=== PATIENT | female | born 1960 | race Caucasian/White ===

== ENCOUNTER 2020-06-15 15:10 | Emergency (ER) | payer OTHER ==
[2020-06-15 15:25] VITALS: BMI 30.2
[2020-06-15] MEDS ORDERED: ACETAMINOPHEN 500 MG TABLET (FP) PO ONE (16:23)
[2020-06-15] MEDS ORDERED: ACETAMINOPHEN 500 MG TABLET (FP) ONE (16:32)
[2020-06-15 18:50] VITALS: BP 137/86; PULSE 82; TEMP 100
== END 2020-06-15 18:53 | disposition home or self-care (01) ==
LOC: JER 15:10
DX: U07.1 COVID-19 (principal)
CPT/HCPCS: 71046-TC-FY; 99283-25

== ENCOUNTER 2020-06-16 16:22 | Inpatient (IN) | payer OTHER ==
[2020-06-16] MEDS ORDERED: DEXAMETHASONE SOD PHOSPHATE 4 MG/1 ML VIAL IVPUSH ONE (17:01)
[2020-06-16] MEDS ORDERED: CEFTRIAXONE 1,000 MG in DEXTROSE 5%-WATER - 50 ML IVPB ONE (17:01)
[2020-06-16] MEDS ORDERED: DEXAMETHASONE SOD PHOSPHATE 10 MG/1 ML VIAL ONE (17:17)
[2020-06-16] MEDS ORDERED: CEFTRIAXONE 1 GM/50 ML BAG ONE (17:18)
[2020-06-16] MEDS ORDERED: SODIUM CHLORIDE 0.9% 500 ML INFUS.BAG IV ONE (17:58)
[2020-06-16] MEDS ORDERED: ACETAMINOPHEN 1000 MG/100 ML VIAL (NON FORMULARY) IVPB ONE (17:58)
[2020-06-16] MEDS ORDERED: AZITHROMYCIN IVPB 500 MG in DEXTROSE 5%-WATER - 250 ML IVPB ONE (17:58)
[2020-06-16 18:02] LABS: VENOUS BASE EXCESS -0.7 mmol/L (-2-2); VENOUS O2 SATURATION 83.6 % (70-80); VENOUS PH 7.376 (7.310-7.410)
[2020-06-16 18:04] LABS: BASO % 0.1 % (0-2.0); HEMATOCRIT 39.3 % (32.4-45.2); HEMOGLOBIN 13.4 GM/dL (10.7-15.3); LYMPH % 16.1 % (8-40); MCH 32.1 pg (25.7-33.7); MEAN CELL VOLUME 94.4 fl (80-96); MEAN PLT VOLUME 9.1 fl (7.5-11.1); MONO % 6.4 % (3.8-10.2); NEUT % 77.4 % (42.8-82.8); PLATELET COUNT 192 K/MM3 (134-434); RBC 4.16 M/mm3 (3.60-5.2); WHITE BLOOD COUNT 6.1 K/mm3 (4.0-10.0)
[2020-06-16 18:10] LABS: INR 1.03 (0.83-1.09); PROTHROMBIN TIME (PATIENT) 12.7 SEC (9.7-13.0)
[2020-06-16] MEDS ORDERED: AZITHROMYCIN IVPB 500 MG/250 ML BAG IVPB ONE (18:21)
[2020-06-16 18:26] LABS: CHLORIDE 104 mmol/L (98-107); POTASSIUM 3.2 mmol/L (3.5-5.1); SODIUM 141 mmol/L (136-145)
[2020-06-16 18:28] LABS: GLUCOSE,RANDOM 183 mg/dL (74-106)
[2020-06-16 18:30] LABS: ALBUMIN 3.2 g/dl (3.4-5.0); ANION GAP 8 MMOL/L (8-16); CO2 28 mmol/L (21-32)
[2020-06-16 18:32] LABS: BILIRUBIN,DIRECT 0.2 mg/dL (0.0-0.2); CREATININE 0.9 mg/dL (0.55-1.3); SGOT/AST 65 U/L (15-37); SGPT/ALT 44 U/L (13-61)
[2020-06-16 18:33] LABS: BILIRUBIN,TOTAL 0.4 mg/dL (0.2-1); LDH 344 U/L (84-246); TOT PROT 7.3 g/dl (6.4-8.2)
[2020-06-16 18:34] LABS: ALK PHOS 71 U/L (45-117)
[2020-06-16] MEDS ORDERED: ENOXAPARIN NA (PORCINE) 40 MG/0.4 ML DISP.SYRIN SQ ONE ×2 (18:42→18:58)
[2020-06-16] MEDS ORDERED: POTASSIUM CHLORIDE TABS 20 MEQ TABLET.ER (FP) PO ONE ×2 (18:49→18:58)
[2020-06-16 19:35] LABS: EPI CELLS >36 /uL (0-25.1); HYALINE CASTS 4 /uL (0-3.1); PH,URINE 5.5 (5.0-8.0); URINE APPEARANCE CLEAR; URINE BACTERIA 55 /uL (0-1359); URINE BILIRUBIN NEGATIVE (NEGATIVE); URINE COLOR DK YELLOW; URINE GLUCOSE (UA) 1+ (NEGATIVE); URINE KETONE TRACE (NEGATIVE); URINE LEUK ESTERASE NEGATIVE (NEGATIVE); URINE NITRITE NEGATIVE (NEGATIVE); URINE PROTEIN 2+ (NEGATIVE); URINE RBC 12 /uL (0-23.9)
[2020-06-16 21:16] LABS: URINE WBC 75.4 /uL (0-25.8)
[2020-06-16] MEDS ORDERED: MAGNESIUM SULF 50% (8.12 MEQ/2 ML-1 GM VIAL) IVPB ONE (23:48)
[2020-06-16] MEDS: ENOXAPARIN NA (PORCINE) 60 MG/0.6 ML DISP.SYRIN SQ SCH (23:58)
[2020-06-17] MEDS ORDERED: PREGABALIN 25 MG CAPSULE ONE (00:16)
[2020-06-17] MEDS: PREGABALIN 25 MG CAPSULE PO SCH ×3 (00:22→21:26)
[2020-06-17] MEDS: INSULIN SLIDING SCALE (NOVOLOG) 1 VIAL SQ SCH ×4 (07:53→21:31)
[2020-06-17 08:13] LABS: RBC 3.94 M/mm3 (3.60-5.2); WHITE BLOOD COUNT 3.7 K/mm3 (4.0-10.0)
[2020-06-17 08:14] LABS: HEMATOCRIT 37.5 % (32.4-45.2); HEMOGLOBIN 12.2 GM/dL (10.7-15.3); MCHC 32.6 g/dl (32.0-36.0); MEAN PLT VOLUME 9.1 fl (7.5-11.1); PLATELET COUNT 182 K/MM3 (134-434); RDW 12.8 % (11.6-15.6)
[2020-06-17 08:32] LABS: CHLORIDE 111 mmol/L (98-107); POTASSIUM 4.4 mmol/L (3.5-5.1); SODIUM 142 mmol/L (136-145)
[2020-06-17 08:36] LABS: ALBUMIN 2.8 g/dl (3.4-5.0); ANION GAP 6 MMOL/L (8-16); BLOOD UREA NITROGEN 13.6 mg/dL (7-18); CALCIUM 7.9 mg/dL (8.5-10.1); CO2 25 mmol/L (21-32); GLUCOSE,RANDOM 179 mg/dL (74-106); MAGNESIUM 2.5 mg/dL (1.8-2.4)
[2020-06-17 08:39] LABS: CREATININE 0.6 mg/dL (0.55-1.3); SGPT/ALT 48 U/L (13-61)
[2020-06-17 08:40] LABS: PHOSPHOROUS 2.8 mg/dL (2.5-4.9); SGOT/AST 59 U/L (15-37)
[2020-06-17 08:41] LABS: ALK PHOS 64 U/L (45-117); BILIRUBIN,TOTAL 0.3 mg/dL (0.2-1); TOT PROT 6.7 g/dl (6.4-8.2)
[2020-06-17] MEDS: CHOLECALCIFEROL (VIT D3) 1,000 UNIT (25 MCG) TABLET PO SCH (11:05)
[2020-06-17] MEDS: DEXAMETHASONE 4 MG TABLET (FP) PO SCH (11:06)
[2020-06-17] MEDS: ZINC SULFATE 220 MG CAPSULE (FP) PO SCH (11:06)
[2020-06-17] MEDS: ASCORBIC ACID 500 MG TABLET (FP) PO SCH ×2 (11:06→21:26)
[2020-06-17] MEDS: AZITHROMYCIN IVPB 500 MG/250 ML BAG IVPB SCH (11:06)
[2020-06-17] MEDS: FAMOTIDINE 20 MG TABLET PO SCH ×2 (11:07→21:26)
[2020-06-17] MEDS ORDERED: REMDESIVIR 200 MG in SODIUM CHLORIDE 210 ML IVPB ONE (11:45)
[2020-06-17 11:46] VITALS: BMI 30.4
[2020-06-17] MEDS: ENOXAPARIN NA (PORCINE) 80 MG/0.8 ML DISP.SYRIN SQ SCH (12:53)
[2020-06-17] MEDS: ENOXAPARIN NA (PORCINE) 60 MG/0.6 ML DISP.SYRIN SQ SCH (13:16)
[2020-06-17] MEDS ORDERED: METHADONE HCL 5 MG TABLET (FOR DETOX USE ONLY) PO SCH ×2 (17:00→17:02)
[2020-06-18] MEDS: ENOXAPARIN NA (PORCINE) 80 MG/0.8 ML DISP.SYRIN SQ SCH ×2 (00:25→12:02)
[2020-06-18] MEDS: ALPRAZolam 0.25 MG TABLET PO PRN ×2 (03:33→22:43)
[2020-06-18] MEDS: INSULIN SLIDING SCALE (NOVOLOG) 1 VIAL SQ SCH ×4 (06:54→22:48)
[2020-06-18 07:59] LABS: BASO % 0.2 % (0-2.0); HEMATOCRIT 34.8 % (32.4-45.2); HEMOGLOBIN 11.5 GM/dL (10.7-15.3); LYMPH % 15.6 % (8-40); MEAN CELL VOLUME 93.8 fl (80-96); MONO % 7.6 % (3.8-10.2); NEUT % 76.6 % (42.8-82.8); PLATELET COUNT 192 K/MM3 (134-434); RBC 3.71 M/mm3 (3.60-5.2); RDW 13.4 % (11.6-15.6); WHITE BLOOD COUNT 6.6 K/mm3 (4.0-10.0)
[2020-06-18 08:13] LABS: POTASSIUM 4.1 mmol/L (3.5-5.1)
[2020-06-18 08:16] LABS: ALBUMIN 2.8 g/dl (3.4-5.0); BLOOD UREA NITROGEN 19.8 mg/dL (7-18)
[2020-06-18 08:18] LABS: CREATININE 0.6 mg/dL (0.55-1.3)
[2020-06-18 08:19] LABS: BILIRUBIN,TOTAL 0.2 mg/dL (0.2-1); TOT PROT 6.5 g/dl (6.4-8.2)
[2020-06-18] MEDS: AZITHROMYCIN IVPB 500 MG/250 ML BAG IVPB SCH (09:25)
[2020-06-18] MEDS: DEXAMETHASONE 4 MG TABLET (FP) PO SCH (09:30)
[2020-06-18] MEDS: CHOLECALCIFEROL (VIT D3) 1,000 UNIT (25 MCG) TABLET PO SCH (09:30)
[2020-06-18] MEDS: FAMOTIDINE 20 MG TABLET PO SCH ×2 (09:30→22:43)
[2020-06-18] MEDS: PREGABALIN 25 MG CAPSULE PO SCH ×2 (09:31→22:43)
[2020-06-18] MEDS: ZINC SULFATE 220 MG CAPSULE (FP) PO SCH (09:31)
[2020-06-18] MEDS: ASCORBIC ACID 500 MG TABLET (FP) PO SCH ×2 (09:31→22:43)
[2020-06-18] MEDS ORDERED: METHADONE HCL 5 MG TABLET PO SCH (09:35)
[2020-06-18] MEDS: REMDESIVIR 100 MG in SODIUM CHLORIDE 230 ML IVPB SCH (12:01)
[2020-06-18] MEDS ORDERED: ACETAMINOPHEN 325 MG TABLET (FP) PO PRN (13:48)
[2020-06-19] MEDS: ENOXAPARIN NA (PORCINE) 80 MG/0.8 ML DISP.SYRIN SQ SCH ×2 (00:49→13:33)
[2020-06-19] MEDS: INSULIN SLIDING SCALE (NOVOLOG) 1 VIAL SQ SCH ×4 (06:33→22:36)
[2020-06-19 07:59] LABS: BASO % 0.3 % (0-2.0); HEMATOCRIT 38.2 % (32.4-45.2); HEMOGLOBIN 12.6 GM/dL (10.7-15.3); LYMPH % 13.9 % (8-40); MCH 31.8 pg (25.7-33.7); MEAN CELL VOLUME 96.5 fl (80-96); MEAN PLT VOLUME 9.4 fl (7.5-11.1); MONO % 7.4 % (3.8-10.2); NEUT % 78.4 % (42.8-82.8); PLATELET COUNT 252 K/MM3 (134-434); RBC 3.96 M/mm3 (3.60-5.2); RDW 13.3 % (11.6-15.6); WHITE BLOOD COUNT 8.1 K/mm3 (4.0-10.0)
[2020-06-19 08:04] LABS: CALCIUM 8.3 mg/dL (8.5-10.1)
[2020-06-19 08:05] LABS: ALBUMIN 3.2 g/dl (3.4-5.0); BLOOD UREA NITROGEN 25.8 mg/dL (7-18)
[2020-06-19 08:07] LABS: CREATININE 0.9 mg/dL (0.55-1.3)
[2020-06-19 08:09] LABS: BILIRUBIN,TOTAL 0.8 mg/dL (0.2-1); TOT PROT 7.2 g/dl (6.4-8.2)
[2020-06-19 08:20] LABS: POTASSIUM 3.4 mmol/L (3.5-5.1)
[2020-06-19] MEDS ORDERED: POTASSIUM CHLORIDE TABS 20 MEQ TABLET.ER (FP) PO ONE (10:02)
[2020-06-19] MEDS: AZITHROMYCIN IVPB 500 MG/250 ML BAG IVPB SCH (10:15)
[2020-06-19] MEDS: REMDESIVIR 100 MG in SODIUM CHLORIDE 230 ML IVPB SCH (10:15)
[2020-06-19] MEDS: FAMOTIDINE 20 MG TABLET PO SCH ×2 (10:16→22:14)
[2020-06-19] MEDS: DEXAMETHASONE 4 MG TABLET (FP) PO SCH (10:16)
[2020-06-19] MEDS: ASCORBIC ACID 500 MG TABLET (FP) PO SCH ×2 (10:16→22:15)
[2020-06-19] MEDS: CHOLECALCIFEROL (VIT D3) 1,000 UNIT (25 MCG) TABLET PO SCH (10:16)
[2020-06-19] MEDS: amLODIPine BESYLATE 5 MG TABLET (FP) PO SCH ×2 (10:17→10:30)
[2020-06-19] MEDS: PREGABALIN 25 MG CAPSULE PO SCH ×2 (10:17→22:15)
[2020-06-19] MEDS: ZINC SULFATE 220 MG CAPSULE (FP) PO SCH (10:17)
[2020-06-19] MEDS: METHADONE HCL 5 MG TABLET PO PRN ×2 (10:17→22:14)
[2020-06-19] MEDS: ALPRAZolam 0.25 MG TABLET PO PRN (22:14)
[2020-06-20] MEDS: ENOXAPARIN NA (PORCINE) 80 MG/0.8 ML DISP.SYRIN SQ SCH ×2 (01:39→14:46)
[2020-06-20] MEDS: INSULIN SLIDING SCALE (NOVOLOG) 1 VIAL SQ SCH ×4 (06:43→22:24)
[2020-06-20 07:46] LABS: HEMATOCRIT 37.8 % (32.4-45.2); HEMOGLOBIN 12.2 GM/dL (10.7-15.3); LYMPH % 18.5 % (8-40); MCH 30.5 pg (25.7-33.7); MCHC 32.4 g/dl (32.0-36.0); MEAN CELL VOLUME 94.3 fl (80-96); MEAN PLT VOLUME 9.3 fl (7.5-11.1); MONO % 10.4 % (3.8-10.2); NEUT % 71.1 % (42.8-82.8); PLATELET COUNT 274 K/MM3 (134-434); RBC 4.01 M/mm3 (3.60-5.2); WHITE BLOOD COUNT 7.1 K/mm3 (4.0-10.0)
[2020-06-20 07:54] LABS: POTASSIUM 4.1 mmol/L (3.5-5.1)
[2020-06-20 08:01] LABS: ALBUMIN 2.9 g/dl (3.4-5.0); CALCIUM 8.3 mg/dL (8.5-10.1)
[2020-06-20 08:02] LABS: BLOOD UREA NITROGEN 22.9 mg/dL (7-18)
[2020-06-20 08:05] LABS: CREATININE 0.8 mg/dL (0.55-1.3)
[2020-06-20 08:06] LABS: BILIRUBIN,TOTAL 0.5 mg/dL (0.2-1); TOT PROT 6.5 g/dl (6.4-8.2)
[2020-06-20] MEDS: DEXAMETHASONE 4 MG TABLET (FP) PO SCH (09:54)
[2020-06-20] MEDS: REMDESIVIR 100 MG in SODIUM CHLORIDE 230 ML IVPB SCH (09:54)
[2020-06-20] MEDS: amLODIPine BESYLATE 5 MG TABLET (FP) PO SCH (09:54)
[2020-06-20] MEDS: ZINC SULFATE 220 MG CAPSULE (FP) PO SCH (09:54)
[2020-06-20] MEDS: FAMOTIDINE 20 MG TABLET PO SCH ×2 (09:55→22:22)
[2020-06-20] MEDS: CHOLECALCIFEROL (VIT D3) 1,000 UNIT (25 MCG) TABLET PO SCH (09:55)
[2020-06-20] MEDS: PREGABALIN 25 MG CAPSULE PO SCH ×2 (09:55→22:26)
[2020-06-20] MEDS: METHADONE HCL 5 MG TABLET PO PRN ×2 (09:55→22:27)
[2020-06-20] MEDS: ASCORBIC ACID 500 MG TABLET (FP) PO SCH ×2 (09:55→22:22)
[2020-06-20 11:29] LABS: ANISOCYTOSIS 0; MACROCYTOSIS 0; PLATELET ESTIMATE NORMAL
[2020-06-20] MEDS: AZITHROMYCIN IVPB 500 MG/250 ML BAG IVPB SCH (12:18)
[2020-06-20] MEDS ORDERED: PT OWN MED DRAWER 7, Y5N ONE (22:07)
[2020-06-21] MEDS: ENOXAPARIN NA (PORCINE) 80 MG/0.8 ML DISP.SYRIN SQ SCH ×2 (00:58→11:48)
[2020-06-21] MEDS ORDERED: ALPRAZolam 0.25 MG TABLET PO ONE (01:14)
[2020-06-21] MEDS: INSULIN SLIDING SCALE (NOVOLOG) 1 VIAL SQ SCH ×3 (06:10→17:47)
[2020-06-21 07:39] LABS: POTASSIUM 4.2 mmol/L (3.5-5.1)
[2020-06-21 07:42] LABS: BASO % 0.1 % (0-2.0); CALCIUM 8.5 mg/dL (8.5-10.1); EOS % 0.1 % (0-4.5); HEMATOCRIT 42.7 % (32.4-45.2); HEMOGLOBIN 13.9 GM/dL (10.7-15.3); LYMPH % 18.1 % (8-40); MCH 30.2 pg (25.7-33.7); MCHC 32.4 g/dl (32.0-36.0); MEAN CELL VOLUME 93.2 fl (80-96); MEAN PLT VOLUME 9.5 fl (7.5-11.1); MONO % 8.2 % (3.8-10.2); NEUT % 73.5 % (42.8-82.8); PLATELET COUNT 341 K/MM3 (134-434); RBC 4.58 M/mm3 (3.60-5.2); RDW 12.7 % (11.6-15.6); WHITE BLOOD COUNT 7.9 K/mm3 (4.0-10.0)
[2020-06-21 07:43] LABS: BLOOD UREA NITROGEN 22.8 mg/dL (7-18)
[2020-06-21 07:46] LABS: CREATININE 0.8 mg/dL (0.55-1.3)
[2020-06-21 07:47] LABS: BILIRUBIN,TOTAL 0.7 mg/dL (0.2-1); TOT PROT 6.9 g/dl (6.4-8.2)
[2020-06-21] MEDS: FAMOTIDINE 20 MG TABLET PO SCH (09:20)
[2020-06-21] MEDS: ZINC SULFATE 220 MG CAPSULE (FP) PO SCH (09:20)
[2020-06-21] MEDS: amLODIPine BESYLATE 5 MG TABLET (FP) PO SCH (09:21)
[2020-06-21] MEDS: ASCORBIC ACID 500 MG TABLET (FP) PO SCH (09:21)
[2020-06-21] MEDS: PREGABALIN 25 MG CAPSULE PO SCH (09:21)
[2020-06-21] MEDS: DEXAMETHASONE 4 MG TABLET (FP) PO SCH (09:21)
[2020-06-21] MEDS: CHOLECALCIFEROL (VIT D3) 1,000 UNIT (25 MCG) TABLET PO SCH (09:21)
[2020-06-21] MEDS: REMDESIVIR 100 MG in SODIUM CHLORIDE 230 ML IVPB SCH (10:24)
[2020-06-21] MEDS: METHADONE HCL 5 MG TABLET PO PRN (10:24)
[2020-06-21 10:42] LABS: ANISOCYTOSIS 0; MACROCYTOSIS 1+; PLATELET ESTIMATE NORMAL
[2020-06-21 16:12] VITALS: BP 147/84; PULSE 69; TEMP 98.2
== END 2020-06-21 17:46 | disposition home or self-care (01) | DRG 177 ==
LOC: JER 16:22 → JERBED 21:10 → J7W 06-17 10:10
PROVIDERS: ADMIT Internal Medicine; ATTEND Student in an Organized Health Care Education/Training Program
PROC: XW033E5 Introduction of Remdesivir Anti-infective into Peripheral Vein, Percutaneous Approach, New Technology Group 5 (ICD-10-PCS; principal; 2020-06-17)
PROC: XW13325 Transfusion of Convalescent Plasma (Nonautologous) into Peripheral Vein, Percutaneous Approach, New Technology Group 5 (ICD-10-PCS; 2020-06-17)
DX: U07.1 COVID-19 (principal); J12.89 Other viral pneumonia; J96.01 Acute respiratory failure with hypoxia; F11.20 Opioid dependence, uncomplicated; M79.7 Fibromyalgia; E87.6 Hypokalemia; Z88.0 Allergy status to penicillin; E11.65 Type 2 diabetes mellitus with hyperglycemia; E66.9 Obesity, unspecified; Z68.30 Body mass index [BMI] 30.0-30.9, adult; Z79.84 Long term (current) use of oral hypoglycemic drugs
CPT/HCPCS: 36415; 36430; 71045-TC-FY; 80053; 81003; 82248; 82550; 82728; 82803; 82962; 83605; 83615; 83735; 84100; 84484; 85025; 85027; 85379; 85610; 85730; 86140; 86850; 86900; 86901; 87040; 87086; 87804; 87899; 93005; 93010; 94761; 97116-GP; 97161-GP; 99291; C9399; C9803; J0131; P9017; U0003